=== PATIENT | female | born 1965 | race Caucasian/White ===

== ENCOUNTER → 2025-02-16 | Outpatient (REF) | payer OTHER ==
[2025-02-16 14:09] LABS: CALCIUM, 24 HOUR URINE 308.0 MG/24HR (42-353)
[2025-02-16 14:11] LABS: CREATININE 24 HOUR, URINE 1162.0 MG/24HR (600-1800); CREATININE, URINE 58.1 MG/DL
== END ==
LOC: M LAB REF 12:08
PROVIDERS: ATTEND Family Medicine
DX: E83.52 Hypercalcemia (principal); N20.9 Urinary calculus, unspecified

== ENCOUNTER → 2025-02-24 | Outpatient (CLI) | payer OTHER | LOC: M WHC 09:09 | PROVIDERS: ATTEND Internal Medicine Gastroenterology | DX: K21.9 Gastro-esophageal reflux disease without esophagitis (principal); K52.89 Other specified noninfective gastroenteritis and colitis; E83.52 Hypercalcemia; N20.0 Calculus of kidney ==

== ENCOUNTER → 2025-02-24 | Outpatient (CLI) | payer OTHER | LOC: M PLAIMG 09:07 | PROVIDERS: ATTEND Family Medicine | DX: N20.0 Calculus of kidney (principal) ==

== ENCOUNTER → 2025-03-16 | Outpatient (REF) | payer OTHER ==
[2025-03-16 19:25] LABS: C REACTIVE PROTEIN QUANTITATIV < 0.50 MG/DL (<1.0); CALCIUM LEVEL 10.7 MG/DL (8.3-10.6); CARBON DIOXIDE LEVEL 32 MMOL/L (20-31); CHLORIDE LEVEL 102 MMOL/L (98-107); CREATININE FOR GFR 0.78 MG/DL (0.55-1.30); GLOMERULAR FILTRATION RATE 86.9 (>45); POTASSIUM SERUM 4.1 MMOL/L (3.5-5.1); SODIUM LEVEL 143 MMOL/L (136-145)
[2025-03-16 19:26] LABS: RHEUMATOID FACTOR QUANT < 3.5 IU/ML (<14)
[2025-03-21 10:47] LABS: ANTI DS-DNA AB Positive (Negative)
[2025-03-21 11:13] LABS: ANTI DS-DNA TITER 1:10 titer (<1:10)
[2025-03-22 15:17] LABS: ANGIOTENSIN 1 CONVERTING ENZYM 42 U/L (9-67)
[2025-03-22 19:28] LABS: ANA PATTERN 2 Nuclear, Homogeneous; ANA TITER 2 1:320 titer (NEGATIVE)
== END ==
LOC: M LABDRAWC 17:38
PROVIDERS: ATTEND Family Medicine
DX: E83.52 Hypercalcemia (principal); K52.839 Microscopic colitis, unspecified; M19.041 Primary osteoarthritis, right hand

== ENCOUNTER → 2025-03-23 | Outpatient (CLI) | payer OTHER ==
[~2025-03-23] MED LIST: ISOVUE-370 76% 100 ML VIAL As Ordered ONE
== END ==
LOC: M RAD 06:41
PROVIDERS: ATTEND Family Medicine
DX: E83.52 Hypercalcemia (principal); E86.9 Volume depletion, unspecified

== ENCOUNTER → 2025-04-27 | Outpatient (REF) | payer OTHER ==
[2025-04-27 19:07] LABS: BASO # 0.1 10^3/uL (0.0-0.2); BASO % 1.2 % (0.0-1.0); EOS # 0.0 10^3/uL (0.0-0.5); EOS % 0.7 % (0.0-3.0); LYMPH # 1.2 10^3/uL (1.5-5.0); LYMPH % 28.8 % (24.0-44.0); MONO # 0.4 10^3/uL (0.0-0.8); MONO % 10.1 % (2.0-8.0); NEUTROPHILS # 2.5 10^3/uL (1.5-8.5); NEUTROPHILS % 59.0 % (36.0-66.0); PLATELET COUNT, AUTOMATED 299 10^3/uL (150-450)
[2025-04-27 19:10] LABS: C REACTIVE PROTEIN QUANTITATIV < 0.50 MG/DL (<1.0)
[2025-04-27 19:11] LABS: ALT/SGPT 34 U/L (7.0-40); AST/SGOT 32 U/L (<34); CALCIUM LEVEL 9.8 MG/DL (8.3-10.6); CARBON DIOXIDE LEVEL 31 MMOL/L (20-31); CHLORIDE LEVEL 101 MMOL/L (98-107); CHOLESTEROL LEVEL 218 MG/DL (<200); CHOLESTEROL RISK RATIO 2.27 (<5); CREATININE FOR GFR 0.77 MG/DL (0.55-1.30); GLOMERULAR FILTRATION RATE 88.3 (>45); LDL CHOLESTEROL 108.0 MG/DL (<100); NON-HDL-C 122.2 MG/DL; POTASSIUM SERUM 4.3 MMOL/L (3.5-5.1); PTH INTACT 30.9 PG/ML (18.5-88.0); SODIUM LEVEL 140 MMOL/L (136-145); TRIGLYCERIDES LEVEL 71 MG/DL (<150)
[2025-04-27 19:12] LABS: TOTAL 25(OH) VITAMIN D 58.7 NG/ML (20.0-100.0)
[2025-04-27 19:32] LABS: ERYTHROCYTE SEDIMENTATION RATE 17 mm/hr (0-30)
[2025-04-29 12:52] LABS: IONIZED CALCIUM SO 5.4 mg/dL (4.7-5.5)
[2025-05-03 10:47] LABS: ANTI DS-DNA AB Positive (Negative)
[2025-05-03 11:13] LABS: ANTI DS-DNA TITER 1:10 titer (<1:10)
== END ==
LOC: M LABDRAWC 18:03
PROVIDERS: ATTEND Family Medicine
DX: M25.50 Pain in unspecified joint (principal); E78.5 Hyperlipidemia, unspecified; K52.839 Microscopic colitis, unspecified; E83.52 Hypercalcemia; N95.1 Menopausal and female climacteric states